=== PATIENT | female | born 1985 | race Two or more races ===

== ENCOUNTER 2017-03-04 18:53 | Emergency (ER) | payer MEDICAID ==
[~2017-03-04] VITALS: Ht 157.5 cm; Wt 68.0 kg
[~2017-03-04 18:53] MED LIST: PREN-96 PO
[2017-03-04 18:55] VITALS: BP 106/70
== END 2017-03-04 21:00 | disposition left against medical advice (07) ==
LOC: ER 19:06
DX: N64.4 Mastodynia (principal); R21 Rash and other nonspecific skin eruption; Z53.21 Procedure and treatment not carried out due to patient leaving prior to being seen by health care provider